=== PATIENT | female | born 1940 | race Caucasian/White ===

== ENCOUNTER 2024-02-22 16:47 | Inpatient (IN) | payer MEDICARE, BC ==
[~2024-02-22] VITALS: Ht 157.5 cm; Wt 48.1 kg
[2024-02-22] MEDS ORDERED: BENZ-13 PO (17:13)
[2024-02-22] MEDS ORDERED: OXYC10TA49 PO (17:13)
[2024-02-22] MEDS ORDERED: ATOR20TA PO (17:13)
[2024-02-22] MEDS ORDERED: DICY10CA13 PO (17:13)
[2024-02-22] MEDS ORDERED: LORA0.5T48 PO (17:13)
[2024-02-22] MEDS ORDERED: FOLI1TAB27 PO (17:13)
[2024-02-22] MEDS ORDERED: DIPH1TAB28 PO (17:13)
[2024-02-22] MEDS ORDERED: ONDA8TAB65 PO (17:13)
[2024-02-22] MEDS ORDERED: TRAM50TA2 PO (17:13)
[2024-02-22] MEDS ORDERED: LEVO75TA7 PO (17:13)
[2024-02-22] MEDS ORDERED: LANS30CA56 PO (17:13)
[2024-02-22] MEDS ORDERED: ESCI20TA PO (17:13)
[2024-02-22] MEDS ORDERED: HYOS-17 SL (17:13)
[2024-02-22] MEDS ORDERED: APIX5TAB PO (17:13)
[2024-02-22] MEDS ORDERED: LOPE2TAB25 PO (17:13)
[2024-02-22 17:20] LABS: BASOPHILS % (AUTO) 0.4 % (0.0-2.0); HEMOGLOBIN 8.6 g/dL (10.9-14.3); LYMPHOCYTES # (AUTO) 1.4 K/uL (0.8-4.8); LYMPHOCYTES % (AUTO) 23.9 % (20.5-51.5); MEAN CORPUSCULAR HEMOGLOBIN 30.2 uug (24.7-32.8); MEAN CORPUSCULAR HGB CONC 33 g/dL (32.3-35.6); MONOCYTES # (AUTO) 0.3 K/uL (0.1-1.30); MONOCYTES % (AUTO) 4.4 % (0.0-11.0); NEUTROPHILS # (AUTO) 4.2 K/uL (1.8-8.9); NEUTROPHILS % (AUTO) 71.3 % (38.5-71.5); PLATELET COUNT (AUTO) 296 K/uL (179-408); RED BLOOD CELL COUNT(AUTO) 2.86 MIL/uL (3.63-4.92); RED CELL DISTRIBUTION WIDTH 18.8 % (12.3-17.7); WHITE BLOOD COUNT (AUTO) 5.8 K/uL (3.8-11.8)
[2024-02-22 17:23] LABS: DIFFERENTIAL COMMENT 1
[2024-02-22 17:27] LABS: CALCIUM 9.3 mg/dL (8.5-10.1); POTASSIUM 3.6 mmol/L (3.5-5.1)
[2024-02-22 17:41] LABS: ALBUMIN 2.7 g/dL (3.4-5.0); BILIRUBIN,TOTAL 1.3 mg/dL (0.2-1.0); C-REACTIVE PROTEIN 3.53 mg/dL (0.00-0.30)
[2024-02-22 17:46] LABS: *BILIRUBIN,URIN NEGATIVE (NEGATIVE); *COLOR,URINE YELLOW (YELLOW); *KETONES,URINE NEGATIVE (NEGATIVE); *PROTEIN,URINE NEGATIVE (NEGATIVE); *UROBILINOGEN,URINE 0.2 E.U./dl (NORMAL); LEUKOCYTE ESTERASE ,URINE 1+ (NEGATIVE); NITRITE, URINE POSITIVE (NEGATIVE); PH,URINE 7.5 (5.0-8.0); UGLUCOSE NEGATIVE (NEGATIVE)
[2024-02-22 17:49] LABS: *BLOOD, URINE TRACE (NEGATIVE)
[2024-02-22 17:50] LABS: *CLARITY,URINE SLIGHTLY HAZY (CLEAR)
[2024-02-22 18:04] LABS: BACTERIA,URINE MANY /HPF (NONE SEEN); RBC,URINE 0-3 /HPF (0-3); SQUAMOUS EPITHELIAL CELL,UR FEW /HPF (NONE SEEN); WBC,URINE 20-50 /HPF (0-3)
[2024-02-22] MEDS ORDERED: CEFTRIAXONE /D5W 50ML IVPB **ER PYXIS IV ONE (18:32)
[2024-02-22] MEDS: CEFTRIAXONE 1 G in IV DEXTROSE 5% 50 ML IV ONE (18:35)
[2024-02-22] MEDS ORDERED: BENZONATATE 100 MG CAPSULE PO PRN (20:30)
[2024-02-22] MEDS ORDERED: LORAZEPAM 0.5 MG TABLET PO PRN (20:30)
[2024-02-22] MEDS ORDERED: ONDANSETRON 4 MG/2 ML VIAL IV PRN (20:30)
[2024-02-22] MEDS ORDERED: DICYCLOMINE HCL 10 MG CAPSULE PO PRN (20:30)
[2024-02-22] MEDS ORDERED: OXYCODONE HCL 5 MG TABLET PO PRN (20:30)
[2024-02-22] MEDS ORDERED: DIPHENOXYLATE HCL/ATROP SULF TABLET PO PRN (20:30)
[2024-02-22 22:30] VITALS: BP 158/62; TEMP 97.8; O2SAT 100
[2024-02-22] MEDS: ATORVASTATIN 20 MG TABLET PO SCH (22:30)
[2024-02-23] MEDS: LORAZEPAM 0.5 MG TABLET PO PRN (02:09)
[2024-02-23] MEDS: ACETAMINOPHEN 325 MG TABLET PO PRN (05:39)
[2024-02-23] MEDS: PANTOPRAZOLE SODIUM 40 MG TABLET.DR PO SCH (06:07)
[2024-02-23 06:27] VITALS: BP 157/67; TEMP 97.9; O2SAT 97
[2024-02-23 07:20] LABS: BASOPHILS % (AUTO) 0.4 % (0.0-2.0); HEMATOCRIT 24.4 % (31.2-41.9); HEMOGLOBIN 8.4 g/dL (10.9-14.3); LYMPHOCYTES # (AUTO) 0.6 K/uL (0.8-4.8); LYMPHOCYTES % (AUTO) 15.5 % (20.5-51.5); MEAN CORPUSCULAR HGB CONC 35 g/dL (32.3-35.6); MEAN CORPUSCULAR VOLUME 89.7 fL (75.5-95.3); MONOCYTES # (AUTO) 0.1 K/uL (0.1-1.30); NEUTROPHILS # (AUTO) 3.3 K/uL (1.8-8.9); NEUTROPHILS % (AUTO) 81.1 % (38.5-71.5); PLATELET COUNT (AUTO) 248 K/uL (179-408); RED BLOOD CELL COUNT(AUTO) 2.72 MIL/uL (3.63-4.92); RED CELL DISTRIBUTION WIDTH 18.5 % (12.3-17.7); WHITE BLOOD COUNT (AUTO) 4.1 K/uL (3.8-11.8)
[2024-02-23 07:35] LABS: DIFFERENTIAL COMMENT 1
[2024-02-23 07:41] LABS: ALANINE AMINOTRANSFERASE 16 U/L (14-59); ALBUMIN 2.6 g/dL (3.4-5.0); ALKALINE PHOSPHATASE 78 U/L (50-136); ASPARTATE AMINOTRANSFERASE 6 U/L (15-37); BILIRUBIN,TOTAL 1.1 mg/dL (0.2-1.0); CALCIUM 8.8 mg/dL (8.5-10.1); CARBON DIOXIDE 27 mmol/L (21-32); CHLORIDE 104 mmol/L (98-107); CHOLESTEROL 92 mg/dL (<200); GLUCOSE 122 mg/dL (74-106); HDL CHOLESTEROL 61 mg/dL (40-60); MAGNESIUM 2.5 mg/dL (1.8-2.4); POTASSIUM 3.4 mmol/L (3.5-5.1); SODIUM SERUM 140 mmol/L (136-145); TOTAL PROTEIN, SERUM 5.8 g/dL (6.4-8.2); TRIGLYCERIDES 55 MG/DL (30-150); UREA NITROGEN, BLOOD 25 mg/dL (7-18)
[2024-02-23 07:46] LABS: THYROID STIMULATING HORMONE 2.252 mIU/mL (0.358-3.740)
[2024-02-23 07:52] LABS: IRON, SERUM 29 ug/dL (50-175)
[2024-02-23] MEDS: LEVOTHYROXINE SODIUM 75 MCG TABLET PO SCH (09:16)
[2024-02-23] MEDS: FOLIC ACID 1 MG TABLET PO SCH (09:16)
[2024-02-23] MEDS: ESCITALOPRAM OXALATE 10 MG TABLET PO SCH (09:16)
[2024-02-23 11:14] VITALS: BP 150/59; TEMP 97.9; O2SAT 99
[2024-02-23] MEDS: POTASSIUM CHLORIDE 20 MEQ POWDER PACKET PO ONE (13:22)
[2024-02-23 15:41] VITALS: BP 165/65; TEMP 97.8; O2SAT 99
[2024-02-23] MEDS: CEFTRIAXONE 1 G in IV DEXTROSE 5% 50 ML IV SCH (18:11)
[2024-02-23] MEDS: IV 1/2NS 1000 ML 1,000 ML IV PRN (18:13)
[2024-02-23] MEDS: APIXABAN 2.5 MG TABLET PO SCH (20:03)
[2024-02-23 20:57] VITALS: BP 161/62; TEMP 98.3; O2SAT 98
[2024-02-23] MEDS: AMLODIPINE 5 MG TABLET PO SCH (21:01)
[2024-02-24 04:39] VITALS: BP 160/62; TEMP 98.6; O2SAT 98
[2024-02-24 07:25] LABS: BASOPHILS % (AUTO) 0.5 % (0.0-2.0); EOSINOPHILS % (AUTO) 1.4 % (0.0-7.0); HEMATOCRIT 25.8 % (31.2-41.9); HEMOGLOBIN 8.6 g/dL (10.9-14.3); LYMPHOCYTES # (AUTO) 0.9 K/uL (0.8-4.8); LYMPHOCYTES % (AUTO) 30.9 % (20.5-51.5); MEAN CORPUSCULAR HEMOGLOBIN 30.3 uug (24.7-32.8); MEAN CORPUSCULAR HGB CONC 34 g/dL (32.3-35.6); MEAN CORPUSCULAR VOLUME 90.5 fL (75.5-95.3); MONOCYTES # (AUTO) 0.1 K/uL (0.1-1.30); MONOCYTES % (AUTO) 2.9 % (0.0-11.0); NEUTROPHILS # (AUTO) 1.9 K/uL (1.8-8.9); NEUTROPHILS % (AUTO) 64.3 % (38.5-71.5); PLATELET COUNT (AUTO) 223 K/uL (179-408); RED BLOOD CELL COUNT(AUTO) 2.85 MIL/uL (3.63-4.92); RED CELL DISTRIBUTION WIDTH 18.4 % (12.3-17.7); WHITE BLOOD COUNT (AUTO) 2.9 K/uL (3.8-11.8)
[2024-02-24 07:47] LABS: CALCIUM 8.6 mg/dL (8.5-10.1); CREATININE 0.9 mg/dL (0.6-1.3); MAGNESIUM 2.5 mg/dL (1.8-2.4); PHOSPHOROUS 3.1 mg/dL (2.5-4.9); POTASSIUM 3.6 mmol/L (3.5-5.1)
[2024-02-24 11:42] VITALS: BP 137/54; TEMP 98.4; O2SAT 100
[2024-02-24 14:50] LABS: *OCCULT BLOOD STOOL NEGATIVE (NEGATIVE)
[2024-02-24 15:58] VITALS: BP 126/59; TEMP 98.6; O2SAT 90
[2024-02-24] MEDS ORDERED: METO25TA3 PO (16:01)
[2024-02-24] MEDS: ENSURE ENLIVE (VAN) 240 ML LIQUID PO SCH (16:39)
[2024-02-24 20:49] VITALS: BP 116/76; TEMP 97.9
[2024-02-24] MEDS: ZOLPIDEM 5 MG TABLET PO PRN (21:34)
[2024-02-25 00:24] VITALS: BP 116/49; TEMP 97.9
[2024-02-25 05:19] VITALS: BP 131/52; TEMP 97.8
[2024-02-25 08:00] VITALS: BP 139/47; TEMP 98.2; O2SAT 97
[2024-02-25 12:00] VITALS: BP 98/52; TEMP 98; O2SAT 98
[2024-02-25 16:00] VITALS: BP 113/52; TEMP 97.8; O2SAT 97
[2024-02-25 19:35] VITALS: BP 115/46; TEMP 98.3; O2SAT 98
[2024-02-26 04:10] VITALS: BP 134/53; TEMP 98.3; O2SAT 97
[2024-02-26 07:48] VITALS: BP 142/63
[2024-02-26 12:02] VITALS: BP 121/54; TEMP 97.6; O2SAT 100
[2024-02-26] MEDS: levoFLOXacin 500 MG TABLET PO ONE (15:50)
[2024-02-26] MEDS ORDERED: LEVO500T90 PO (22:41)
[2024-02-27] MEDS ORDERED: CEFTRIAXONE 1 G in IV DEXTROSE 5% 50 ML IV SCH (16:00)
== END 2024-02-26 16:35 | disposition home or self-care (01) | DRG 689 ==
LOC: ER 16:49 → MEDSURG3 21:49
PROVIDERS: ADMIT Internal Medicine; ATTEND Nurse Practitioner Family
DX: N39.0 Urinary tract infection, site not specified (principal); G93.41 Metabolic encephalopathy; E44.0 Moderate protein-calorie malnutrition; C25.9 Malignant neoplasm of pancreas, unspecified; I67.89 Other cerebrovascular disease; R62.7 Adult failure to thrive; R33.9 Retention of urine, unspecified; E87.6 Hypokalemia; D64.9 Anemia, unspecified; Z66 Do not resuscitate; E86.0 Dehydration; E78.5 Hyperlipidemia, unspecified; R23.3 Spontaneous ecchymoses; L90.9 Atrophic disorder of skin, unspecified; M15.9 Polyosteoarthritis, unspecified; R79.89 Other specified abnormal findings of blood chemistry; B96.89 Other specified bacterial agents as the cause of diseases classified elsewhere; G93.89 Other specified disorders of brain; G47.9 Sleep disorder, unspecified; E88.09 Other disorders of plasma-protein metabolism, not elsewhere classified; Z86.718 Personal history of other venous thrombosis and embolism; Z79.01 Long term (current) use of anticoagulants; Z85.3 Personal history of malignant neoplasm of breast; Z90.13 Acquired absence of bilateral breasts and nipples; Z92.21 Personal history of antineoplastic chemotherapy; Z79.899 Other long term (current) drug therapy
CPT/HCPCS: 36415; 70450; 71045; 83550; 83605; 83735; 84100; 84443; 84484; 85025; 86140; 87040; 93005; A4663; C1758; G0378; J0696